=== PATIENT | female | born 1960 | race Caucasian/White ===

== ENCOUNTER 2017-02-18 16:27 | Inpatient (IN) | payer OTHER ==
[~2017-02-18] VITALS: Ht 154.9 cm; Wt 57.2 kg
[~2017-02-18 16:27] MED LIST: AUGMENTIN 875 M1 TA1 PO; BIAXIN500 MG PO; CLARITIN10 MG PO; COMBIVENT1 ARO IH; FLEXERIL10 MG PO; FLEXERIL5 MG PO; IBUPROFEN 30 M800 MG PO; MEDROL DOSEPAK4 MG PO; MOTRIN600 MG PO; NORCO 325 MG-51 TAB PO; SOMA350 MG PO; TRAMADOL HCL50 MG PO
[2017-02-18 16:31] VITALS: BP 133/90
[2017-02-18 16:42] LABS: BILIRUBIN NEGATIVE (NEGATIVE); BLOOD 1+ (NEGATIVE); CLARITY SL CLOUDY (CLEAR); COLOR YELLOW (YELLOW); GLUCOSE NEGATIVE (NEGATIVE); KETONE NEGATIVE (NEGATIVE); LEUKO ESTERASE NEGATIVE (NEGATIVE); NITRITE NEGATIVE (NEGATIVE); PH 5.5 (5.0-9.0); PROTEIN TRACE (NEGATIVE); SPECIFIC GRAVITY 1.015 (1.005-1.030); UROBILINOGEN 0.2 E.U./dl (0.2-1.0)
[2017-02-18 16:52] LABS: URINE AMPHETAMINES < 1000 (1000ng/ml); URINE BARBITURATES < 200 (200ng/ml); URINE COCAINE < 300 (300ng/ml)
[2017-02-18 16:54] LABS: MUCOUS 1+; RBC 0-2 rbc/hpf (0-2); URINE REFLEX COMMENT NO (NO); WBC 0-2 wbc/hpf (0-5)
[2017-02-18 16:56] LABS: BASO # 0.1 10*3/uL (0.0-0.1); BASO % 0.8 % (0.0-1.0); EOS # 0.3 10*3/uL (0.0-0.4); EOS % 3.6 % (1.0-4.0); HEMATOCRIT 51.5 % (37.0-47.0); HEMOGLOBIN 17.2 g/dl (12.0-16.0); LYMPH # 2.4 10*3/uL (1.3-4.4); LYMPH % 30.7 % (27.0-41.0); MEAN CELL VOLUME 88.6 fl (81.0-99.0); MEAN CORPUSCULAR HGB 29.6 pg (27.0-31.0); MEAN CORPUSCULAR HGB CONC 33.4 g/dl (33.0-37.0); MEAN PLATELET VOLUME 8.5 fl (9.6-12.3); MONO # 0.4 10*3/uL (0.1-1.0); MONO % 4.9 % (3.0-9.0); NEUT # 4.6 10*3/uL (2.3-7.9); NEUT % 59.6 % (47.0-73.0); PLATELET COUNT AUTOMATED 247 10*3/uL (130-400); RED BLOOD COUNT 5.81 10*6/uL (4.10-5.10); RED CELL DISTRI WIDTH 13.2 % (0-14.5); WHITE BLOOD COUNT 7.7 10*3/uL (4.8-10.8)
[2017-02-18 17:11] LABS: ALBUMIN 3.7 gm/dl (3.1-4.5); ALKALINE PHOSPHATASE 94 U/L (45-117); BILIRUBIN, TOTAL 0.3 mg/dl (0.2-1.0); BUN 5 mg/dl (7-24); CARBON DIOXIDE 30 mmol/L (21-32); CHLORIDE 106 mmol/L (98-107); EST GLOM FILT AFRICAN AMERICAN > 60 ml/min; GLUCOSE 147 mg/dL (65-99); POTASSIUM 3.8 mmol/L (3.5-5.1); SGOT/AST 17 IU/L (3-35); SGPT/ALT 13 U/L (12-78); SODIUM 143 mmol/L (136-145); TOTAL PROTEIN 7.7 gm/dL (6.4-8.2)
[2017-02-18] MEDS ORDERED: VENTOLIN H0.09 MG/AC INH (18:09)
[2017-02-18 20:51] VITALS: BP 130/76
[2017-02-19 00:48] VITALS: BP 118/58
[2017-02-19 08:00] VITALS: BP 101/62
[2017-02-19 12:00] VITALS: BP 98/61
[2017-02-19 16:00] VITALS: BP 121/67
[2017-02-19 20:00] VITALS: BP 98/69
[2017-02-20] VITALS: BP 104/72
[2017-02-20 08:00] VITALS: BP 112/56
[2017-02-20 12:00] VITALS: BP 105/51
[2017-02-20 16:00] VITALS: BP 90/55
[2017-02-20 20:00] VITALS: BP 95/55
[2017-02-21] VITALS: BP 90/54
[2017-02-21 08:00] VITALS: BP 88/47
[2017-02-21] MEDS ORDERED: ZOFRAN 4 MG ED2 TAB PO (10:27)
[2017-02-21] MEDS ORDERED: ATARAX,VISTARIL50 MG PO (10:27)
[2017-02-21] MEDS ORDERED: ROPINIROLE HYD0.5 MG PO (10:27)
[2017-02-21] MEDS ORDERED: NICOTINE T21 MG/24 H TD (11:41)
== END 2017-02-21 11:35 | disposition home or self-care (01) | DRG 897 ==
LOC: ED 16:27 → 5E 17:17 → EDHOLD 17:17 → 5E 17:46
PROVIDERS: Registered Nurse
DX: F11.23 Opioid dependence with withdrawal (principal); D75.1 Secondary polycythemia; I10 Essential (primary) hypertension; R73.9 Hyperglycemia, unspecified; F17.200 Nicotine dependence, unspecified, uncomplicated; J45.909 Unspecified asthma, uncomplicated; Z71.6 Tobacco abuse counseling; Z90.710 Acquired absence of both cervix and uterus; Z88.8 Allergy status to other drugs, medicaments and biological substances; Z79.51 Long term (current) use of inhaled steroids

== ENCOUNTER 2020-03-06 13:11 | Inpatient (IN) | payer OTHER ==
[~2020-03-06] VITALS: Ht 154.9 cm; Wt 68.5 kg
[~2020-03-06 13:11] MED LIST changes: +ATARAX,VISTARIL50 MG PO; +NICOTINE T21 MG/24 H TD; +ROPINIROLE HYD0.5 MG PO; +VENTOLIN H0.09 MG/AC INH; +ZOFRAN 4 MG ED2 TAB PO
[2020-03-06 13:20] VITALS: BP 87/38
[2020-03-06 13:58] LABS: BASO % 0.7 % (0.0-1.0); EOS # 0.2 10*3/uL (0.0-0.4); HEMATOCRIT 50.6 % (37.0-47.0); LYMPH # 0.8 10*3/uL (1.3-4.4); LYMPH % 15.1 % (27.0-41.0); MEAN CELL VOLUME 85.6 fl (81.0-99.0); MEAN CORPUSCULAR HGB 23.4 pg (27.0-31.0); MEAN CORPUSCULAR HGB CONC 27.3 g/dl (33.0-37.0); MEAN PLATELET VOLUME 8.9 fl (9.6-12.3); MONO # 0.5 10*3/uL (0.1-1.0); MONO % 8.3 % (3.0-9.0); NEUT # 3.9 10*3/uL (2.3-7.9); NEUT % 71.5 % (47.0-73.0); PLATELET COUNT AUTOMATED 219 10*3/uL (130-400); RED BLOOD COUNT 5.91 10*6/uL (4.10-5.10); RED CELL DISTRI WIDTH 25.8 % (0-14.5); WHITE BLOOD COUNT 5.4 10*3/uL (4.8-10.8)
[2020-03-06 14:10] LABS: ACT PARTIAL THROMBO TIME 28.1 SECONDS (20.0-32.1); INTERNATIONAL NORM RATIO 1.1 (2.0-3.5)
[2020-03-06 14:16] LABS: ALBUMIN 2.4 gm/dl (3.1-4.5); ALKALINE PHOSPHATASE 102 U/L (45-117); BUN 6 mg/dl (7-24); CHLORIDE 97 mmol/L (98-107); CREATININE 0.63 mg/dL (0.55-1.02); POTASSIUM 3.8 mmol/L (3.5-5.1); SGOT/AST 26 IU/L (3-35); SGPT/ALT 13 U/L (12-78); SODIUM 137 mmol/L (136-145); TOTAL PROTEIN 6.7 gm/dL (6.4-8.2)
[2020-03-06 14:17] LABS: TROPONIN I 0.021 ng/ml (<0.045)
[2020-03-06 15:10] VITALS: BP 113/80
[2020-03-06 15:45] LABS: ABG BASE EXCESS 10.6 mmol/L (-2.0-2.0); ARTERIAL BLOOD GAS PH 7.322 (7.35-7.45)
[2020-03-06 15:53] LABS: BACTERIA 1+; BILIRUBIN NEGATIVE (NEGATIVE); BLOOD NEGATIVE (NEGATIVE); CLARITY CLEAR (CLEAR); COLOR YELLOW (YELLOW); GLUCOSE NEGATIVE (NEGATIVE); KETONE NEGATIVE (NEGATIVE); LEUKO ESTERASE TRACE (NEGATIVE); NITRITE NEGATIVE (NEGATIVE); SPECIFIC GRAVITY 1.005 (1.005-1.030); UROBILINOGEN 0.2 E.U./dl (0.2-1.0)
--- NOTE | 2020-03-06 16:41 | NUR ---
PT TO CT.
--- NOTE | 2020-03-06 17:08 | NUR ---
PT SISTER CALLED. VERBAL PERMISSION GIVEN TO TALK WITH HER. UPDATE GIVEN.
--- NOTE | 2020-03-06 18:05 | NUR ---
A 59, admitted to 4E, under the services of KRYSTLE Cortez DO with a diagnosis of RESP FAILURE. Chief complaint is SOB, COUGH. Patient arrived via stretcher from ER. Monitor applied. Initial assessment completed. Vital signs taken and recorded. KRYSTLE CORTEZ DO notified of admission to the unit. Orders received. See assessment for past medical history, medications and allergies. Patient and/or family oriented to unit. [facility] visitation policy reviewed. Clothing/patient valuable form completed. ERLIN SAHNI
[2020-03-06 18:12] VITALS: BP 119/71
[2020-03-06] MEDS ORDERED: FUROSEMIDE20 M1 PO (18:13)
[2020-03-06] MEDS ORDERED: POTASSIUM CHLO10 ME4 PO (18:14)
[2020-03-06] MEDS ORDERED: ADVAIR 250/501 EA INH (18:16)
--- NOTE | 2020-03-06 18:42 | NUR ---
DR TEJADA HERE TO SEE PT
--- NOTE | 2020-03-06 18:45 | NUR ---
SPOKE WITH DR COOPER REGARDING CONSULT
--- NOTE | 2020-03-06 19:35 | NUR ---
ANSWERING SERVICE NOTIFIED OF CONSULT.
[2020-03-06 20:00] VITALS: BP 110/65
--- NOTE | 2020-03-06 20:00 | NUR ---
PATIENT REFUSING TO WEAR BIPAP. DR COOPER AWARE; STATES CANCEL 2030 ABG AND RESCHEDULE FOR 0700 PER RESPIRATORY.
--- NOTE | 2020-03-06 21:11 | NUR ---
DR HASSAN AWARE OF PT'S REQUEST FOR NICOTINE PATCH
--- NOTE | 2020-03-06 21:35 | NUR ---
NICOTINE PATCH APPLIED TO LEFT SHOULDER PER PT REQUEST.
--- NOTE | 2020-03-06 22:42 | NUR ---
RESTORIL GIVEN PER PT REQUEST. WILL MONITOR.
--- NOTE | 2020-03-06 23:46 | NUR ---
RESTORIL APPEARS EFFECTIVE. PT SLEEPING, EASY REGULAR RESPS ON 4L NC. CALL LIGHT IN REACH.
[2020-03-07] VITALS: BP 128/75
[2020-03-07 04:00] VITALS: BP 130/76
[2020-03-07 06:29] LABS: BASO % 0.6 % (0.0-1.0); EOS # 0.2 10*3/uL (0.0-0.4); EOS % 2.4 % (1.0-4.0); HEMATOCRIT 45.4 % (37.0-47.0); LYMPH # 1.2 10*3/uL (1.3-4.4); LYMPH % 16.7 % (27.0-41.0); MEAN CELL VOLUME 87.5 fl (81.0-99.0); MEAN CORPUSCULAR HGB 23.1 pg (27.0-31.0); MEAN CORPUSCULAR HGB CONC 26.4 g/dl (33.0-37.0); MEAN PLATELET VOLUME 9.7 fl (9.6-12.3); MONO # 0.8 10*3/uL (0.1-1.0); MONO % 11.2 % (3.0-9.0); NEUT # 4.9 10*3/uL (2.3-7.9); PLATELET COUNT AUTOMATED 205 10*3/uL (130-400); RED BLOOD COUNT 5.19 10*6/uL (4.10-5.10); RED CELL DISTRI WIDTH 25.7 % (0-14.5); WHITE BLOOD COUNT 7.1 10*3/uL (4.8-10.8)
[2020-03-07 06:55] LABS: BUN 6 mg/dl (7-24); CHLORIDE 100 mmol/L (98-107); CHOLESTEROL 96 mg/dL (<200); CREATININE 0.48 mg/dL (0.55-1.02); HDL CHOLESTEROL 44 mg/dl (40-60); LDL CHOLESTEROL 31 mg/dL (9-159); POTASSIUM 3.8 mmol/L (3.5-5.1); SODIUM 142 mmol/L (136-145); TRIGLYCERIDES 105 mg/dl (<150); VLDL CHOLESTEROL 21 mg/dL (6-40)
[2020-03-07 07:50] LABS: ABG BASE EXCESS 11.5 mmol/L (-2.0-2.0); ARTERIAL BLOOD GAS PH 7.295 (7.35-7.45)
[2020-03-07 08:00] VITALS: BP 132/70
--- NOTE | 2020-03-07 08:01 | NUR ---
dr pink called and notified of abgs
--- NOTE | 2020-03-07 09:10 | NUR ---
PHYSICAL THERAPY Physical Therapy evaluation completed on 4E with full evaluation to follow. Low complexity PT evaluation per chart review and evaluation, [id number]. Recommend physical therapy per plan of care and Home Health upon discharge. Thank you for this referral. Angie Franklin,PT,DPT
--- NOTE | 2020-03-07 09:15 | NUR ---
Occupational Therapy evaluation completed on four with full evaluation to follow. Recommend occupational therapy per plan of care and home with HH SN, OT, and PT upon discharge. Thank you for this referral. SULEMAN ORDONEZ OTR/L
--- NOTE | 2020-03-07 11:22 | NUR ---
Contracts Paralegal in to talk to patient. Patient states lives at HOME with AND SON. There are SEVERAL steps in the home. Physician: SALMA ZARCO [facility] Home health services: NONE Patient's level of ADLs: INDEPENDENT Patient has working utilities: YES DME: OXYGEN, DOES NOT KNO NAME OF [facility] Follow-up physician's appointment after d/c: WILL BE MADE BY HOSPITALIST NURSE DIRECTOR ON DISCHARGE Does patient want to access PORTAL?: NO Discharge plan PT LIVES AT HOME WITH HER AND SON. DENIES SHE WILL HAVE ANY NEEDS ON DISCHARGE. STATES SHE HAS HOME O2 AND A WALKER. PLAN IS TO RETURN HOME WHEN MEDICALLY STABLE. WILL CONTINUE TO FOLLOW. STATES HER WILL TAKE HER HOME ON DISCHARGE. . DIANA DENG
--- NOTE | 2020-03-07 11:48 | NUR ---
11:10 BIPAP EXPLAINED OT PATIENT. PT AGREED TO USE BIPAP. ATTEMPTED VALIDATION TECHNICIAN'S MASK INITIALLY. PT DID NOT TOLERATE. PLACED REGULAR MED FACEMASK. WITH ENCOURAGEMENT, PT TOLERATED. PARAMETERS TITRATED TO 14/5 WITH VST 500-620 CC. SYSTEM CHECKED AND FX'ING. AT 11:20 PT OFF OF BIPAP TO GO THE THE RESTROOM. 11:25 BIPAP RE-INITIATED. PT TOLERATED X 25 MINS. PT OFF OF BIPAP TO GO TO RESTROOM. PT IS ON LASIX. PT IS REQUIRING FREQUENT TRIPS TO THE RESTROOM. BIPAP NOT ATTEMPTED AGAIN. PT ON 4 L NC. RN AWARE.
[2020-03-07 12:00] VITALS: BP 124/76
[2020-03-07 16:00] VITALS: BP 110/57
--- NOTE | 2020-03-07 19:51 | NUR ---
DIGNACO GIVEN PER ORDER FOR PAIN RATED "6" LEGS. SEE MAR.
--- NOTE | 2020-03-07 20:12 | NUR ---
NICOTINE PATCH REMOVED. NICOLTROL INHALER STARTED.
--- NOTE | 2020-03-07 20:50 | NUR ---
NORCO EFFECTIVE FOR PAIN PER PT. "IT'S HELPING ME FEEL BETTER."
--- NOTE | 2020-03-07 21:45 | NUR ---
RESTORIL GIVEN PER ORDER FOR INSOMNIA. SEE MAR.
--- NOTE | 2020-03-07 21:56 | NUR ---
PATIENT USING ANOTHER NICOTROL INHALER CARTRDGE.
[2020-03-07 22:00] VITALS: BP 110/55
--- NOTE | 2020-03-07 22:45 | NUR ---
RESTORIL NOT EFFECTIVE YET PATIENT STILL AWAKE BUT FEELING A LITTLE DROWSY.
[2020-03-08] VITALS: BP 104/56
--- NOTE | 2020-03-08 00:04 | NUR ---
PATIENT WANTED OFF THE BIPAP PATIENT PLACED BACK ON 4L O2 NC.
--- NOTE | 2020-03-08 00:09 | NUR ---
NOTIFIED RESPIRATORY OF PATIENT OFF BIPAP AND BACK ON NC
--- NOTE | 2020-03-08 03:48 | NUR ---
24 HR chart check completed.
[2020-03-08 06:08] LABS: BUN 4 mg/dl (7-24); CHLORIDE 99 mmol/L (98-107); POTASSIUM 3.1 mmol/L (3.5-5.1); SODIUM 141 mmol/L (136-145)
--- NOTE | 2020-03-08 06:14 | NUR ---
NORCO GIVEN PER ORDER FOR PAIN LEGS, NECK AND BACK RATED "8". SEE MAR.
--- NOTE | 2020-03-08 07:10 | NUR ---
NORCO EFFECTIVE FOR PAIN PER PT.
--- NOTE | 2020-03-08 07:45 | NUR ---
SHIFT CHART CHECK COMPLETED
[2020-03-08 08:00] VITALS: BP 110/69
--- NOTE | 2020-03-08 10:00 | NUR ---
TAKEN OFF OF BIPAP AND PLACED ON 4LNC. TOLERATED FAIRLY. PT AND NURSE AGREED TO TRY BIPAP AGAIN AFTER SHE EATS LUNCH. RT ALSO NOTIFIED OF PLAN.
[2020-03-08 12:00] VITALS: BP 126/78
--- NOTE | 2020-03-08 12:06 | NUR ---
NORCO GIVEN FOR BACK PAIN RATED 7/10 & LEG PAIN RATED 3/10. CALL LIGHT IN REACH. WILL MONITOR.
--- NOTE | 2020-03-08 12:59 | NUR ---
NORCO EFFECTIVE PER PT. BACK PAIN AND LEG PAIN "IS BETTER." CALL LIGHT IN REACH.
--- NOTE | 2020-03-08 13:46 | NUR ---
OT NOTE Pt was seen this P.M. 1:1 for 20 minute OT session. Upon arrival pt was supine in bed. Pt identified by name and an had complaints of BLE pain "due to swelling, nothing new." Pt did not rate on 0-10 pain scale. Pt presented to therapy with continuous 4L-O2 via NC which she remained on throughout the entire session. While sitting EOB pt doffed and donned B socks with supervision while using compensatory technique of bringing leg up to knee level and then donned sweater while standing with SBA for safety. Pt completed sit to stand transfer from bed level with SBA followed by challenging pt's dynamic standing tolerance needed for increased I and enhanced safety in self care tasks. Pt was able to tolerate aprox 5 minutes before sitting due to fatigue. Functional mobility was then completed to the bathroom with supervision, there she transferred on/off standard commode with supervision and use of grab bar for UE support. Pt was left supine in bed with call light in hand, tray table in place, and phone in reach. Continue with rec D/C plan to home with home health. MARGARITA Ferrari/Doroteo
--- NOTE | 2020-03-08 15:10 | NUR ---
OCCUPATIONAL THERAPY CO-SIGN I approve of the Occupational Therapy notes written above. SULEMAN ORDONEZ, OTR/L
--- NOTE | 2020-03-08 15:45 | NUR ---
PLACED ON BIPAP BY RT YIN. CALL LIGHT IN REACH. WILL MONITOR.
[2020-03-08 16:00] VITALS: BP 134/71
--- NOTE | 2020-03-08 16:50 | NUR ---
BIPAP REMOVED FOR USE OF RESTROOM. PT WOULD LIKE TO KEEP IT OFF FOR A LITTLE WHILE. STATES SHE IS TOLERATING MUCH BETTER THAN BEFORE AND IS MORE OPEN TO USING IT NOW.
--- NOTE | 2020-03-08 17:14 | NUR ---
NORCO GIVEN FOR COMPLAINTS OF PAIN TO BACK AND LEGS RATED 7/10. CALL LIGHT IN REACH.WILL MONITOR.
--- NOTE | 2020-03-08 18:01 | NUR ---
SLEEPING. NORCO SEEMS TO BE EFFECTIVE FOR COMPLAINTS. CALL LIGHT IN REACH.
[2020-03-08 20:00] VITALS: BP 122/73
--- NOTE | 2020-03-08 21:38 | NUR ---
NICOTROL INHALER IN USE. SEE MAR.
--- NOTE | 2020-03-08 21:39 | NUR ---
RESTORIL GIVE PER ORDER OF INSOMNIA. SEE MAR.
--- NOTE | 2020-03-08 21:52 | NUR ---
DIGNACO GIVEN PER ORDER FOR PAIN LEGS/BACK PER PT. RATED "8". SEE MAR.
--- NOTE | 2020-03-08 22:39 | NUR ---
RESTORIL NOT HELPING YET WITH INSOMNIA BUT PATIENT IS DROWSY. NICOTROL INHALER PER PATIENT HAS HELPED HER MUCH BETTER THAT THE NICOTINE PATCH.
--- NOTE | 2020-03-08 22:50 | NUR ---
ISELA HELPING WITH PAIN PER PT. SEE MAR.
--- NOTE | 2020-03-08 23:43 | NUR ---
PATIENT STATES SHE IS NOT READY TO GO ON BIPAP AT THIS TIME.
[2020-03-09] VITALS: BP 116/63
--- NOTE | 2020-03-09 01:49 | NUR ---
PATIENT C/O PAIN IN LEGS SITTING UP AT SIDE OF BED RUBBING LEGS PAIN RATED "7-8" WHEN GIVEN NORCO PATIENT DROPPED PILL ON FLOOR. WASTED PILL IN NARCOTIC WASTED WITNESSED BY SCHOOL ADMINISTRATOR NURSE ANNA CANTU RN
--- NOTE | 2020-03-09 01:55 | NUR ---
NORCO GIVEN PER ORDER FOR PAIN IN LEGS PER PT. RATED "7-8" SEE MAR.
--- NOTE | 2020-03-09 02:28 | NUR ---
24 HR chart check completed.
--- NOTE | 2020-03-09 02:50 | NUR ---
ISELA HELPING WITH PAIN PER PT.. RESTING MORE EASY.
[2020-03-09 08:00] VITALS: BP 98/56
--- NOTE | 2020-03-09 08:45 | NUR ---
PRN NORCO GIVEN FOR C/O LEG PAIN
--- NOTE | 2020-03-09 09:30 | NUR ---
PER PT NORCO WAS EFFECTIVE
[2020-03-09 11:11] VITALS: BP 116/60
--- NOTE | 2020-03-09 11:14 | NUR ---
PT SITTING WITH LEGS DANGLING OVER SIDE OF BED, PT ENCOURAGED TO ELEVATE HER LEGS MUCH POSSIBLE, PT VOICED UNDERSTANDING AND COOPERATIVE
[2020-03-09 12:00] VITALS: BP 110/76
--- NOTE | 2020-03-09 15:15 | NUR ---
HOME O2 ASSESSMENT: RESTING SPO2 ON RA 88% HR 82 RR 20 BP 112/78 RESTING SPO2 ON 2L NC 92% HR 80 SPO2 WITH AMBULATION ON 2L NC 90-92% HR 86 RECOVERY SPO2 ON 2L NC 93% HR 82 RR 20 BP 118/66 PT ASSESSED FOR HOME O2 AT REST AND WITH EXERTION. PT. REQUIRES 2L O2 CONTINUOUSLY TO KEEP SPO2 GREATHER THAN OR EQUAL TO 88%. RN NOTIFIED.
--- NOTE | 2020-03-09 15:47 | NUR ---
NOTIFIED OF HOME OXYGEN ASSESSMENT
[2020-03-09 16:00] VITALS: BP 113/61
--- NOTE | 2020-03-09 16:18 | NUR ---
PT ANXIOUS RELATED TO NEED FOR HOME OXYGEN AND UNABLE TO BE DISCHARGED HOME TODAY, PRN VISTARIL GIVEN
--- NOTE | 2020-03-09 16:50 | NUR ---
PT RESTING IN BED AT THIS TIME, REPORTS A DECREASE IN ANXIETY BUT STILL UPSET SHE CANT GO HOME WITHOUT OXYGEN, EXPLAINED RISK, PT VOICED UNDERSTANDING
--- NOTE | 2020-03-09 17:11 | NUR ---
PRN NORCO GIVEN FOR C/O BILATERAL LOWER EXTREMITY PAIN 02/01, PT REFUSED TYLENOL
--- NOTE | 2020-03-09 17:36 | NUR ---
PER PT PRN NORCO WAS EFFECTIVE FOR LEG PAIN
--- NOTE | 2020-03-09 19:47 | NUR ---
EASILY AROUSED FOR SHIFT ASSESSMENT. CALL LIGHT IN REACH. NO VOICED COMPLAINTS AT THIS TIME. REQUESTED PAIN MED WITH NIGHT TIME MED PASS.
[2020-03-09 20:00] VITALS: BP 114/57
--- NOTE | 2020-03-09 20:59 | NUR ---
NORCO GIVEN FOR C/O LOWER BACK PAIN RATED 6/10. CALL LIGHT WITHIN REACH.
--- NOTE | 2020-03-09 21:05 | NUR ---
RESTORIL GIVEN PER REQUEST TO HELP THE PATIENT SLEEP. WILL MONITOR. CALL LIGHT IN REACH.
--- NOTE | 2020-03-09 21:45 | NUR ---
PATIENT REFUSING BIPAP AT THIS TIME. WILL REATTEMPT LATER
--- NOTE | 2020-03-09 21:46 | NUR ---
PER PT, NORCO WAS EFFECTIVE. STATES RESTORIL HAS MADE HER MORE SLEEPY BUT SHE IS NOT READY TO GO TO SLEEP YET. RESTORIL WAS EFFECTIVE PER PT.
[2020-03-10] VITALS: BP 108/59
--- NOTE | 2020-03-10 00:35 | NUR ---
PLACED PATIENT ON BIPAP FOR HS. WILL CONTINUE TO MONITOR
--- NOTE | 2020-03-10 00:59 | NUR ---
ISELA GIVEN FOR C/O OF "TAILBONE PAIN". STATES SHE GETS THIS SAME PAIN AT HOME OFF AND ON. CALL LIGHT IN REACH. WILL MONITOR FOR EFFECTIVENESS.
--- NOTE | 2020-03-10 01:30 | NUR ---
REMOVED PATIENT FROM BIPAP TO GO TO REST ROOM. PATIENT DOES NOT WISH TO GO BACK ON BIPAP AT THIS TIME. 4L NASAL CANNULA IN USE.
--- NOTE | 2020-03-10 01:32 | NUR ---
24HR CHART CHECK COMPLETED
--- NOTE | 2020-03-10 01:46 | NUR ---
PT AWAKE, STATES THAT HER TAILBONE STILL HURTS BUT IS BETTER. DENIES NEED FOR FURTHER MEDS OR INTERVENTIONS AT THIS TIME. NORCO EFFECTIVE. CALL LIGHT IN REACH.
--- NOTE | 2020-03-10 05:03 | NUR ---
AWAKE AND STANDING AT DOOR, WAVED NURSE DOWN. REQUESTED NORCO FOR "TAILBONE" PAIN RATED 8/10. NORCO GIVEN AT THIS TIME. CALL LIGHT WITHIN REACH. WILL MONITOR.
[2020-03-10 05:58] LABS: BUN 6 mg/dl (7-24); CHLORIDE 97 mmol/L (98-107); CREATININE 0.43 mg/dL (0.55-1.02); POTASSIUM 3.2 mmol/L (3.5-5.1); SODIUM 140 mmol/L (136-145)
--- NOTE | 2020-03-10 06:01 | NUR ---
NORCO EFFECTIVE PER PT. CALL LIGHT WITHIN REACH. PT AWAKE, SITTING AT SIDE OF BED WITH ARMS ACROSS TABLE. NO FURTHER COMPLAINTS.
--- NOTE | 2020-03-10 06:04 | NUR ---
INFORMED OF SERUM CO2 OF 44. PT REFUSED BIPAP FOR MUCH OF THE NIGHT. ONLY WORE IT FOR A TOTAL OF 45MINS. SAID OK.
[2020-03-10 08:00] VITALS: BP 107/64
--- NOTE | 2020-03-10 08:48 | NUR ---
PRN NORCO GIVEN FOR C/O OF LEG PAIN 03/03
--- NOTE | 2020-03-10 09:30 | NUR ---
PER PT NORCO WAS EFEFCTIVE FOR LEG PAIN, PT AGREEDING FOR BIPAP RESP NOTIFIED
--- NOTE | 2020-03-10 11:00 | NUR ---
PT. OFF BIPAP. 3L NC ON.
[2020-03-10] MEDS ORDERED: VITAMIN D350 MC2 PO (12:26)
[2020-03-10] MEDS ORDERED: ALDACTONE25 MG PO (12:26)
[2020-03-10] MEDS ORDERED: MUCUS RELIEF600 MG PO (12:26)
[2020-03-10] MEDS ORDERED: DOXYCYCLINE MO100 M1 PO (12:26)
[2020-03-10] MEDS ORDERED: VENTOLIN 02.5 MG/3 M NEB (12:29)
--- NOTE | 2020-03-10 13:42 | NUR ---
Discharge instructions reviewed with patient/family. Patient receptive and verbalizes understanding. Follow-up care arranged. Written instructions given to patient/family. JULIANNA MARTINEZ
== END 2020-03-10 13:42 | disposition home or self-care (01) | DRG 871 ==
LOC: ED 13:11 → EDHOLD 17:01 → 4E 17:01
PROVIDERS: Emergency Medicine; Family Medicine; Internal Medicine; Internal Medicine Critical Care Medicine; Student in an Organized Health Care Education/Training Program; ADMIT Family Medicine
DX: A41.9 Sepsis, unspecified organism (principal); J18.9 Pneumonia, unspecified organism; J96.22 Acute and chronic respiratory failure with hypercapnia; J96.21 Acute and chronic respiratory failure with hypoxia; E44.0 Moderate protein-calorie malnutrition; J44.0 Chronic obstructive pulmonary disease with (acute) lower respiratory infection; E87.4 Mixed disorder of acid-base balance; R65.20 Severe sepsis without septic shock; I27.20 Pulmonary hypertension, unspecified; E66.3 Overweight; I87.2 Venous insufficiency (chronic) (peripheral); E87.8 Other disorders of electrolyte and fluid balance, not elsewhere classified; E87.6 Hypokalemia; F17.210 Nicotine dependence, cigarettes, uncomplicated; I27.81 Cor pulmonale (chronic); I50.811 Acute right heart failure; Z53.29 Procedure and treatment not carried out because of patient's decision for other reasons; E55.9 Vitamin D deficiency, unspecified; I73.9 Peripheral vascular disease, unspecified; E78.5 Hyperlipidemia, unspecified; Z71.6 Tobacco abuse counseling; Z88.8 Allergy status to other drugs, medicaments and biological substances; Z99.81 Dependence on supplemental oxygen; Z90.710 Acquired absence of both cervix and uterus; Z82.49 Family history of ischemic heart disease and other diseases of the circulatory system; Z85.41 Personal history of malignant neoplasm of cervix uteri

== ENCOUNTER 2020-07-15 12:55 | Emergency (ER) | payer OTHER ==
[~2020-07-15] VITALS: Ht 152.4 cm; Wt 59.0 kg
[~2020-07-15 12:55] MED LIST changes: +ADVAIR 250/501 EA INH; +ALDACTONE25 MG PO; +DOXYCYCLINE MO100 M1 PO; +FUROSEMIDE20 M1 PO; +MUCUS RELIEF600 MG PO; +POTASSIUM CHLO10 ME4 PO; +VENTOLIN 02.5 MG/3 M NEB; +VITAMIN D350 MC2 PO
[2020-07-15 13:07] LABS: HEMATOCRIT 43.4 % (37.0-47.0); MEAN CELL VOLUME 79.9 fl (81.0-99.0); MEAN CORPUSCULAR HGB 21.2 pg (27.0-31.0); MEAN CORPUSCULAR HGB CONC 26.5 g/dl (33.0-37.0); MEAN PLATELET VOLUME 9.3 fl (9.6-12.3); NUCLEATED RED BLOOD CELL 0.2 10*3/uL (0.0-0.0); NUCLEATED RED BLOOD CELL 2.2 % (0.0-0.0); PLATELET COUNT AUTOMATED 220 10*3/uL (130-400); RED BLOOD COUNT 5.43 10*6/uL (4.10-5.10); RED CELL DISTRI WIDTH 21.9 % (0-14.5); WHITE BLOOD COUNT 10.8 10*3/uL (4.8-10.8)
[2020-07-15 13:17] LABS: INTERNATIONAL NORM RATIO 1.3 (2.0-3.5)
[2020-07-15 13:23] LABS: ALBUMIN 2.5 gm/dl (3.1-4.5); ALKALINE PHOSPHATASE 107 U/L (45-117); BUN 13 mg/dl (7-24); CHLORIDE 93 mmol/L (98-107); CREATININE 0.97 mg/dL (0.55-1.02); LIPASE 43 U/L (73-393); POTASSIUM 4.3 mmol/L (3.5-5.1); SGOT/AST 20 IU/L (3-35); SGPT/ALT 16 U/L (12-78); SODIUM 131 mmol/L (136-145); TOTAL PROTEIN 6.6 gm/dL (6.4-8.2); TROPONIN I 0.044 ng/ml (<0.045)
[2020-07-15 13:28] LABS: BASOPHILS 1 % (0-1); TOTAL CELLS COUNTED 100 #CELLS
[2020-07-15 13:29] LABS: BURR CELLS FEW; PLATELET SUFFICIENCY NORMAL (NORMAL); POLYCHROMASIA SLIGHT; SCHISTOCYTES FEW; TARGET CELLS FEW
[2020-07-15 13:30] LABS: MICROCYTOSIS SLIGHT
== END 2020-07-15 14:07 | disposition short-term general hospital (02) ==
LOC: ED 12:55
PROVIDERS: Emergency Medicine
DX: I46.9 Cardiac arrest, cause unspecified (principal); Z88.8 Allergy status to other drugs, medicaments and biological substances; Z79.899 Other long term (current) drug therapy